=== PATIENT | female | born 1985 | race Caucasian/White ===

== ENCOUNTER → 2023-09-28 08:52 | Outpatient (REF) | payer OTHER, SELFPAY | LOC: WDC 08:52 | PROVIDERS: ATTENDING PHYSICIAN Obstetrics & Gynecology; FAMILY PHYSICIAN Family Medicine | DX: R92.8 Other abnormal and inconclusive findings on diagnostic imaging of breast (principal) | CPT/HCPCS: 76642 ==

== ENCOUNTER → 2024-08-11 07:57 | Outpatient (REF) | payer OTHER, SELFPAY | LOC: WDC 07:57 | PROVIDERS: ATTENDING PHYSICIAN Obstetrics & Gynecology; FAMILY PHYSICIAN Family Medicine | DX: Z12.31 Encounter for screening mammogram for malignant neoplasm of breast (principal) | CPT/HCPCS: 77063; 77067 ==

== ENCOUNTER 2024-08-13 13:06 | Observation (INO) | payer OTHER, SELFPAY ==
[2024-08-13 09:10] LABS: % Basophils 0.8 % (0-2); % Eosinophils 2.6 % (0-6); % Immature Granulocytes 0.3 % (0-0.5); % Lymphocytes 24.7 % (20.5-51.1); % Monocytes 5.4 % (1.7-9.3); % Neutrophils 66.2 % (42.2-75.2); Absolute Basophils 0.1 10^3/uL (0-0.2); Absolute Eosinophils 0.3 10^3/uL (0-0.7); Absolute Lymphocytes 3.1 10^3/uL (1.2-3.4); Absolute Monocytes 0.7 10^3/uL (0.1-0.6); Absolute Neutrophils 8.3 10^3/uL (1.4-6.5); HCG, Serum Qualitative Screen Negative; Hematocrit 36.1 % (37.0-47.0); Hemoglobin 12.9 g/dL (12.0-16.0); Mean Corp Hgb Conc. 35.7 g/dL (33.0-37.0); Mean Corpuscular Hgb 30.7 pg (27.0-31.0); Mean Platelet Volume 9.5 fL (7.4-10.4); Nucleated Red Blood Cells % 0 %; Platelet Count 265 10^3/uL (130-400); Red Cell Dist. Width 12.8 % (11.5-14.5); White Blood Cell Count 12.5 10^3/uL (4.8-10.8)
[2024-08-13 09:12] LABS: ALT (SGPT) 15 U/L (0-35); AST (SGOT) 19 U/L (14-36); Albumin 4.1 g/dl (3.5-5.0); Alkaline Phosphatase 50 U/L (38-126); Blood Urea Nitrogen 13 mg/dl (7-17); Calcium 9.3 mg/dl (8.4-10.2); Carbon Dioxide 20 mmol/L (22-30); Chloride 106 mmol/L (98-107); Glucose 113 mg/dl (70-99); Lipase 97 U/L (23-300); Potassium 4.7 mmol/L (3.5-5.1); Sodium 134 mmol/L (135-145); Total Bilirubin 0.4 mg/dl (0.2-1.3); Total Protein 6.9 g/dl (6.3-8.2); eGFR > 60.00
--- NOTE | 2024-08-13 09:21 | ED.GENMED ---
History of Present Illness
General
Chief Complaint: Abdominal Symptoms
Source: patient
Exam Limitations: none
Time Seen by Provider: 08/13/24 08:55
History of Present Illness
History of Present Illness:
39yoF with a history of IBS and prior cholecystectomy presenting for evaluation of abdominal pain. The pain woke her up from sleep this morning around 6am. The pain is located in the periumbilical region and is non-radiating. The pain feels like
something is going to explode. She currently rates her pain as an 8-9/10 in severity. She had similar pains in the past with a gallbladder attack although she has since had a cholecystectomy. She also reports nausea, belching, and feeling like she
has to pass gas. She denies any vomiting, diarrhea, dysuria, fevers. Of note, she did have [place] food for dinner last night.
Past History
Past History
ED Past Medical History: None
ED Past Surgical History: None
Social History
Personal:
Living: with family
Phy Exam
Physical Exam
Physical Exam:
Appears uncomfortable, non-toxic
General Physical Exam
General Presentation: well appearing
General Skin: warm and dry
General Habitus: normal
General Mental: alert
ENT Exam
ENT Exam: normocephalic
Pulmonary Exam
Pulmonary Exam: lungs clear, no respiratory distress, no rales, no crackles and no rhonchi
Gastrointestinal Exam
Gastrointestinal Exam: soft, non distended and other (+Generalized tenderness that is worse in the periumbilical region. +Voluntary guarding. Abdomen soft, non-distended. )
Neurological Exam
Neurological Exam: alert
Western Coma Scale
Eye Opening: Spontaneous
Verbal Response: Oriented
Motor Response: Obeys Commands
GCS Total Score: 15
Skin Exam
Skin Exam: normal color and warm/dry
Psychiatric Exam
Psychiatric Exam: normal mood/affect
Course
Orders/Labs/Results
Orders:
Orders
08/13/24 08:43
Test Result ONCE
08/13/24 08:52
Complete Blood Count/With Diff Urgent
Comprehensive Metabolic Panel Urgent
HCG, Serum Qualitative Screen Urgent
Lipase Urgent
08/13/24 09:18
0.9% Sodium Chloride 1000 ml [Nss] 1,000 ml IV BOLUS
HYDROmorphone [Dilaudid] 0.5 mg IV NOW STA
Ketorolac [Toradol] 15 mg IV NOW STA
08/13/24 09:19
CT Abd/pelvis W Iv Cont Urgent
Comment:
Reason For Exam: Periumbilical pain
08/13/24 11:25
Urinalysis Reflex To Culture Urgent
Date Specimen was Collected: 08/13/24
Time Specimen was Collected: 08:43
08/13/24 12:55
Admit/Transfer Patient As Directed
Co-Sign Provider:
Level of Care: Observation services
Assign to:: Medical/Surgical
Physician / Group: [facility]
Diagnosis: Enteritis
PRN Pain Medication Management As Directed
May give lesser potent ordered pain med per pt: Yes
preference::
Protocol:: Medication orders for pain may be administered in a
manner that supports deferring to patient preference
when the pt is:
- Requesting an ordered lesser potent pain medication.
Least to most potent pain medications are defined
as: acetaminophen < NSAID < tramadol < opioids
(morphine, oxycodone, hydromorphone).
- Requesting a lesser dose of the same medication IF
ORDERED.
- Requesting a less intrusive route of administration
if both routes are prescribed by the provider (PO <
IV).
08/13/24 12:56
Code Status As Directed
Resuscitation Status: Full Code
Abnormal Lab Results
08/13/24
08:52
WBC 12.5 H 10^3/uL
(4.8-10.8)
Hct 36.1 L %
(37.0-47.0)
Absolute Neuts (auto) 8.3 H 10^3/uL
(1.4-6.5)
Absolute Monos (auto) 0.7 H 10^3/uL
(0.1-0.6)
Sodium 134 L mmol/L
(135-145)
Carbon Dioxide 20 L mmol/L
(22-30)
Glucose 113 H mg/dl
(70-99)
08/13/24 08:52
08/13/24 08:52
Vital Signs
Initial and Last Documented VS:
Initial Vital Signs
Temp Pulse Resp Pulse Ox
98.4 F 71 16 98
08/13/24 08:37 08/13/24 08:37 08/13/24 08:37 08/13/24 08:37
Last Documented Vital Signs
Temp Pulse Resp BP Pulse Ox
98.4 F 82 18 132/89 98
08/13/24 08:37 08/13/24 12:48 08/13/24 12:48 08/13/24 12:48 08/13/24 12:48
MDM/Problems Addressed
Differential Diagnosis Includes:
39yoF here with severe abd pain that woke her up from sleep this morning. Worse in the periumbilical region. C/o nausea and belching. Hx of cholecystectomy. VSS. She appears uncomfortable but is non-toxic. Voluntary guarding noted on abdominal exam.
Differential diagnosis includes but is not limited to: appendicitis, pancreatitis, SBO, gastroenteritis
Initial ED plan: Check abdominal labs, HCG, and CT abdomen. IV Toradol, Dilaudid, and fluid bolus for symptoms.
*Critical Care Note
Total Time (30-74mins, 75-104mins- exclusive of procedures): Not Applicable
Update Note
Update Note:
Labs reveal a leukocytosis with a white count of 12.5. Remainder of labs unremarkable including normal lipase and LFTs. CT shows enteritis/ileus without frida obstruction. Patient reassessed after medications. Pain improved although persists.
Pain currently rated as a 5/10 in severity. Will admit for observation and serial abdominal exams.
ED Attending Note
-
Portions of this chart may have been created with voice recognition software.� Occasional wrong word or��sound alike� substitutions may have occurred due to the inherent limitations of voice recognition software.
Discharge Plan
Departure
Patient Disposition: Admit
Date of Disposition: 08/13/24
Time of Disposition: 10:46
Presentation/result/management discussed w/ accepting MD/DO: Hospitalist
Discharge Problem:
Ileus
Interventions
Interventions:
*Risk Screen - Suicide Last Done: 08/13/24 08:37
*General Assessment Last Done: 08/13/24 10:15
*Neglect/Abuse Screening Last Done: 08/13/24 08:37
RK-Juyszr-Tviaxyrgpr Assessment Last Done: 08/13/24 10:15
[2024-08-13] MEDS: DILAUDID 0.5 MG IV (10:03)
[2024-08-13] MEDS: NSS 1000 IV (10:03)
[2024-08-13] MEDS: TORADOL 15 MG IV (10:04)
[2024-08-13 10:15] VITALS: BMI 27.3
[2024-08-13 11:51] LABS: Urine Albumin Negative (Neg - Trace); Urine Bilirubin Negative (Negative); Urine Character Slightly Cloudy (Clear); Urine Color Yellow; Urine Glucose Negative (Negative); Urine Ketone Negative (Negative); Urine Leukocyte Negative (Negative); Urine Nitrite Negative (Negative); Urine Occult Blood Negative (Negative); Urine Urobilinogen Negative (Neg - 1+); Urine pH 6.5 (5.0-9.0)
[2024-08-13 12:48] VITALS: BP 132/89
--- NOTE | 2024-08-13 12:59 | HPS.HSE ---
Addendum entered and electronically signed by Nazario Muir MD 08/13/24 14:38:
Patient is feeling better tolerating clears. She wants to see if she can go home. Advance diet to low residue diet and if she tolerates she can leave. Will prescribe for Zofran to use within next couple of days if she is symptomatic. She was
advised to return back if she is not able to tolerate diet, worsenig of abdominal pain or having fevers.
Original Note:
Family Physician
-
Family Physician: Edna Morales
Chief Complaint
-
Acute onset of abdominal pain and nausea.
History of Present Illness
Patient was in usual state of health yesterday. She slept at 10:00pm. Had some [place] takeout food for dinner. She slept okay but at 6 AM she was woken up because of acute abdominal pain. She felt like a bad gas ;she felt like exploding. The
severe nature of it has reminded her gallbladder attack. She had a gallbladder removed after that. She is been feeling nauseous but no vomiting. No diarrhea or loose stools. No fever or chills.
She did not share the food with other people in the family nobody else with GI illness. Nobody at work with GI illness. No recent travel outside the country.
Since medication in the ER pain has much decreased 3 out of 10.
No recent changes with health. No recent medication additions. No known medical diagnosis.
Medical History
Past Medical History
Past Medical History: Reports None
Past Surgical History: Reports Cholecystectomy
Social History
Tobacco: Non-smoker
Alcohol: None
Drug: None
Living: With Family
Family History
Family History: Not pertinent
Allergies / Home Medications
Allergies reflects when Allergies were last updated in [facility].
Home Medications with original date entered in [facility]
Allergy/Medication List:
Allergies
Allergy/AdvReac Type Severity Reaction Status Date / Time
Penicillins Allergy Mild Unknown Verified 08/13/24 08:42
amoxicillin Allergy Unknown Hives Verified 08/13/24 08:42
Home Medications
cholestyramine-aspartame 4 gram oral powder (Cholestyramine Light) 4 g PO DAILY 08/13/24
doxylamine succinate 25 mg tablet (Sleep Aid (doxylamine)) 25 mg PO HSPRN PRN sleep 08/13/24
norethindrone 1.5 mg-ethinyl estradiol 30 mcg(21)/iron 75 mg(7) tablet (Aurovela Fe 1.5/30 (28)) 1 tab PO DAILY 08/13/24
Review of Systems
-
A 12 point ROS was completed and negative except as noted: Yes
Physical Exam
Vital Signs
Vital Signs
Temp Pulse Resp BP Pulse Ox
98.4 F 82 18 132/89 98
08/13/24 08:37 08/13/24 12:48 08/13/24 12:48 08/13/24 12:48 08/13/24 12:48
Physical Exam
General: No Apparent Distress
HEENT: Moist mucous membranes
Respiratory: Clear and Non Labored Respirations; No Accessory Resp Muscle Use
Cardiac: S1/S2 and Regular Rhythm
GI: Soft, Non Distended, Normal Bowel Sounds and Tender (epigastric area discomfort but no rebound or guarding)
Neuro: AO x 3
Psych: Calm
Laboratory Results
-
08/13/24 08:52
08/13/24 08:52
Laboratory Results
Total Bilirubin 0.4 mg/dl (0.2-1.3) 08/13/24 08:52
AST 19 U/L (14-36) 08/13/24 08:52
ALT 15 U/L (0-35) 08/13/24 08:52
Alkaline Phosphatase 50 U/L (38-126) 08/13/24 08:52
Lipase 97 U/L (23-300) 08/13/24 08:52
Data Reviewed
-
CT Scan: Report Reviewed by me (CT A/P)
Lab Data: Labs Reviewed by me
Impression/Plan
-
Acute gastroenteritis
Patient presents with sudden onset of abdominal pain with nausea. CT of the abdomen pelvis raises concern for enteritis/ileus. No small bowel obstruction. Normal appendix. Mild to moderate diffuse colonic stool burden. Follicular changes of the
bilateral ovaries noted.
Unclear if this is a foodborne illness or other etiology for acute gastroenteritis.
Admit as an observation for symptomatic support and treatments.
Start on clear liquid diet.
Start on antiemetics, IV fluids, Toradol for pain.
Check lipase. LFTs are normal.
Suspect leukocytosis may be reactive-follow
Pt s/p cholecystectomy
Full code
== END 2024-08-13 15:13 | disposition home or self-care (01) ==
LOC: ED 13:06
PROVIDERS: ADMITTING PHYSICIAN Internal Medicine; EMERGENCY PHYSICIAN Emergency Medicine; FAMILY PHYSICIAN Family Medicine
DX: K52.9 Noninfective gastroenteritis and colitis, unspecified (principal); Z90.49 Acquired absence of other specified parts of digestive tract; Z88.0 Allergy status to penicillin
CPT/HCPCS: 74177; 80053; 81003; 83690; 84703; 85025; 96361; 96374; 96375; 99285; G0378; Q9967

== ENCOUNTER → 2025-01-12 09:49 | Outpatient (REF) | payer OTHER, SELFPAY | LOC: WDC 09:49 | PROVIDERS: ATTENDING PHYSICIAN Family Medicine | DX: R92.333 Mammographic heterogeneous density, bilateral breasts (principal) | CPT/HCPCS: 76641 ==

== ENCOUNTER → 2025-02-09 09:55 | Outpatient (REF) | payer OTHER, SELFPAY | LOC: RAD 09:55 | PROVIDERS: FAMILY PHYSICIAN Family Medicine | DX: R10.2 Pelvic and perineal pain (principal) | CPT/HCPCS: 76830; 76856 ==